=== PATIENT | female | born 1935 | race Caucasian/White ===

== ENCOUNTER 2024-07-31 02:30 | Emergency (ER) | payer MEDICARE ==
[2024-07-31] MEDS ORDERED: Morphine 2 MG/ML SYRINGE IV ONE (02:31)
[2024-07-31] MEDS ORDERED: Iopamidol 612 MG/ML 100 ML Bottle IVPUSH ONE (02:39)
[2024-07-31 02:47] LABS: EOSINOPHILS PERCENT AUTO 2.2 % (1.0-3.0); HEMATOCRIT 37.2 % (37.0-47.0); HEMOGLOBIN 12.2 g/dL (12.0-16.0); LYMPHOCYTES PERCENT AUTO 31.6 % (20.5-50.1); MEAN CORPUSCULAR HEMOGLOBIN 29.5 pg (27.0-34.0); MEAN CORPUSCULAR HGB CONC 32.8 g/dL (33.0-35.0); MEAN CORPUSCULAR VOLUME 89.9 fL (80-100); MONOCYTES PERCENT AUTO 7.4 % (2-8); NEUTROPHILS PERCENT AUTO 57.8 % (42.2-75.2); PLATELET COUNT,PLT 209 10^3/uL (150-450); RED BLOOD CELL COUNT 4.14 10^6/uL (4.2-5.4); WHITE BLOOD CELL COUNT,WBC 7.7 10^3/uL (5.0-10.0)
[2024-07-31] MEDS: Iopamidol 755 Mg/ML 100 ML Bottle IVPUSH ONE ×2 (02:48→04:01)
[2024-07-31 03:02] LABS: PROTHROMBIN TIME 10.5 SEC (9.0-12.0)
[2024-07-31 03:09] LABS: ALANINE AMINOTRANSFERASE,ALT 20 U/L (14-59); ALBUMIN 3.6 g/dL (3.4-5.0); ALKALINE PHOSPHATASE 74 U/L (46-116); ANION GAP 12.5 mEq/L (7-13); ASPARTATE AMNIOTRANSFERASE,AST 21 U/L (15-37); BILIRUBIN TOTAL 0.7 mg/dL (0.2-1.0); BLOOD UREA NITROGEN,BUN 12 mg/dL (7-18); BUN/CREATININE RATIO 14.6 (No establ ref range); CARBON DIOXIDE,CO2 27 mmol/L (21-32); CHLORIDE,CL 99 mmol/L (98-107); CREATININE 0.82 mg/dL (0.55-1.02); ESTIMATED GFR 69 mL/min (>=60); ETHANOL BLOOD MEDICAL < 3 mg/dL (0); GLUCOSE RANDOM 129 mg/dL (70-99); MAGNESIUM 1.9 mg/dL (1.8-2.4); POTASSIUM,K 3.5 mmol/L (3.5-5.1); PROTEIN TOTAL,TP 7.2 g/dL (6.4-8.2); SODIUM,NA 135 mmol/L (136-145)
[2024-07-31] MEDS ORDERED: Acetaminophen 325 MG Tab PO ONE (03:19)
[2024-07-31] MEDS ORDERED: Ondansetron 4 MG/2 ML SDV ONE (04:15)
[2024-07-31] MEDS ORDERED: Morphine 2 MG/ML SYRINGE IVPUSH ONE ×2 (04:15→05:54)
[2024-07-31] MEDS ORDERED: Ondansetron 4 MG/2 ML SDV IVPUSH ONE (04:15)
[2024-07-31] MEDS ORDERED: Morphine 2 MG/ML SYRINGE ONE (04:16)
== END 2024-07-31 07:24 ==
LOC: DL.ED 02:30
DX: S12.500A Unspecified displaced fracture of sixth cervical vertebra, initial encounter for closed fracture (principal); S00.83XA Contusion of other part of head, initial encounter; S09.90XA Unspecified injury of head, initial encounter; I10 Essential (primary) hypertension; Z86.73 Personal history of transient ischemic attack (TIA), and cerebral infarction without residual deficits; Z79.899 Other long term (current) drug therapy; W18.11XA Fall from or off toilet without subsequent striking against object, initial encounter
CPT/HCPCS: 36415; 70450; 70496; 70498; 71260; 72125; 74177; 80053; 80307; 82947; 83735; 84484; 85025; 85610; 93005; 93010; 99285; J2270; Q9967

== ENCOUNTER 2024-10-31 08:19 | Day surgery (SDC) | payer MEDICARE ==
[2024-10-31] MEDS ORDERED: Ondansetron 4 MG/2 ML SDV IVPUSH PRN (08:30)
[2024-10-31] MEDS ORDERED: Acetaminophen 325 MG Tab PO PRN (08:30)
[2024-10-31] MEDS ORDERED: Acetaminophen/Codeine 300-30 MG Tab PO PRN (08:30)
[2024-10-31] MEDS: Proparacaine 0.5% Ophth Soln 15 ML Bottle EYELF ONE ×2 (09:09→10:15)
[2024-10-31] MEDS: Povidone-Iodine 5% Sterile Ophth Soln 30 ML Bottle EYELF ONE ×2 (09:11→10:15)
[2024-10-31] MEDS: Moxifloxacin 0.5% Ophth Soln 3 ML Bottle EYELF ONE (09:13)
[2024-10-31] MEDS: Tropicamide 1% Ophth Soln 15 ML Bottle EYELF ONE (09:14)
[2024-10-31] MEDS: Phenylephrine 10% Ophth Soln 5 ML Bot EYELF ONE (09:15)
[2024-10-31] MEDS: Timolol Maleate 0.5% Ophth Soln 5 ML Bottle EYELF ONE (09:16)
[2024-10-31] MEDS: Cataract Ophth Solution EYELF ONE (09:17)
[2024-10-31] MEDS: Sodium Chloride 0.9% 10 ML Syringe FLUSH PRN (09:18)
[2024-10-31] MEDS: VANCOmycin 500 MG SDV EYELF ONE (10:26)
[2024-10-31] MEDS: Lidocaine 1% 30 ML SDV ONE (10:26)
[2024-10-31] MEDS: Apraclonidine 0.5% Ophth Soln 5 ML Bot EYELF ONE (10:29)
[2024-10-31] MEDS: Dexamethasone/Neomycin/Polymyxin B Ophth Oint 3.5 GM Tube EYELF ONE (10:30)
[2024-10-31] MEDS: Diclofenac Sodium 0.1% Ophth Soln 5 ML Bottle EYELF ONE (10:30)
== END 2024-10-31 11:18 | disposition home or self-care (01) ==
LOC: DL.SDS 08:19
PROVIDERS: ATTEND Ophthalmology
DX: H26.8 Other specified cataract (principal); I10 Essential (primary) hypertension
CPT/HCPCS: 66984; A9270; J3370; V2632; J3490

== ENCOUNTER 2024-11-07 09:11 | Day surgery (SDC) | payer MEDICARE ==
[2024-11-07] MEDS ORDERED: Acetaminophen 325 MG Tab PO PRN (09:15)
[2024-11-07] MEDS ORDERED: Acetaminophen/Codeine 300-30 MG Tab PO PRN (09:15)
[2024-11-07] MEDS ORDERED: Ondansetron 4 MG/2 ML SDV IVPUSH PRN (09:15)
[2024-11-07] MEDS: Sodium Chloride 0.9% 10 ML Syringe FLUSH PRN (09:46)
[2024-11-07] MEDS: Proparacaine 0.5% Ophth Soln 15 ML Bottle EYERT ONE ×2 (09:47→10:22)
[2024-11-07] MEDS: Moxifloxacin 0.5% Ophth Soln 3 ML Bottle EYERT ONE (09:47)
[2024-11-07] MEDS: Povidone-Iodine 5% Sterile Ophth Soln 30 ML Bottle EYERT ONE ×2 (09:48→10:22)
[2024-11-07] MEDS: Tropicamide 1% Ophth Soln 15 ML Bottle EYERT ONE (09:49)
[2024-11-07] MEDS: Timolol Maleate 0.5% Ophth Soln 5 ML Bottle EYERT ONE (09:49)
[2024-11-07] MEDS: Phenylephrine 10% Ophth Soln 5 ML Bot EYERT ONE (09:49)
[2024-11-07] MEDS: Cataract Ophth Solution EYERT ONE (09:50)
[2024-11-07] MEDS: Diclofenac Sodium 0.1% Ophth Soln 5 ML Bottle EYERT ONE (10:22)
[2024-11-07] MEDS: Apraclonidine 0.5% Ophth Soln 5 ML Bot EYERT ONE (10:22)
[2024-11-07] MEDS: Lidocaine 1% 30 ML SDV ONE (10:30)
[2024-11-07] MEDS: VANCOmycin 500 MG SDV EYERT ONE (10:30)
[2024-11-07] MEDS: Dexamethasone/Neomycin/Polymyxin B Ophth Oint 3.5 GM Tube EYERT ONE (10:36)
== END 2024-11-07 11:15 ==
LOC: DL.SDS 09:11
PROVIDERS: ATTEND Ophthalmology
DX: H25.811 Combined forms of age-related cataract, right eye (principal); I10 Essential (primary) hypertension; Z79.82 Long term (current) use of aspirin; Z79.899 Other long term (current) drug therapy
CPT/HCPCS: 66984; A9270; J3370; V2632; 00142; 99100; J3490